=== PATIENT | female | born 1945 | race African-American/Black ===

== ENCOUNTER 2017-08-30 10:27 | Day surgery (SDC) | payer OTHER, BC ==
[2017-08-30 11:13] VITALS: BMI 26.6
[2017-08-30 12:07] LABS: ANION GAP 10 (8-16); BLOOD UREA NITROGEN 13 mg/dL (7-18); CALCIUM 9.2 mg/dL (8.5-10.1); CHLORIDE 102 mmol/L (98-107); CO2 26 mmol/L (21-32); GLUCOSE,RANDOM 91 mg/dL (74-106); MAGNESIUM 2.1 mg/dL (1.8-2.4); POTASSIUM 3.5 mmol/L (3.5-5.1); SODIUM 138 mmol/L (136-145)
--- NOTE | 2017-08-30 12:07 | PN ---
Progress Note (short form) - Note Progress Note: Spoke with Ms. Ang today prior to procedure as she did not return phone shantel from my office or endoscopy unit yesterday. She had prepped for colon on tuesday as opposed to last night. She said that she didn't call back " because she thought she would be told the same thing". I explained that I wanted to confirm if she was showing up tomorrow and discuss the result of her tuesday bowel prep as she may have needed further bowel prep given her history of significant constipation and previously poor bowel prep. Given that she states being on a clear liquid diet for 2 days I also ordered blood for BMP/ Mg.
[2017-08-30 13:26] VITALS: PULSE 57
[2017-08-30 13:46] VITALS: BP 147/74; TEMP 98.6
--- NOTE | 2017-08-31 16:27 | PATH ---
Surgical Pathology Report Patient Name: NICHOLAS GONZALEZ [facility]. Rec. #: [id number] /Age/Gender: 1945 (Age: 72) / F Account: [id number] Location: [facility]ENDOSCOPY Taken: 08/30/2017 Received: 08/30/2017 Reported: 08/31/2017 Physicians: Jose Daily D.O. Specimen(s) Received BX ILEOCECAL VALVE POLYP Clinical History History of colon polyp Postoperative diagnosis: Diverticulosis, polyp Final Diagnosis ILEOCECAL VALVE POLYP, BIOPSY: TUBULAR ADENOMA. Electronically Signed Norberto Edwards M.D. Gross Description Received in formalin, labeled "biopsy ileocecal valve polyp" is a lopez, irregular portion of soft tissue measuring 0.4 cm. in greatest dimension. The specimen is submitted in toto in one cassette. /08/30/201708/30/2017
== END 2017-08-30 12:50 | disposition home or self-care (01) ==
LOC: JASU-ENDO 10:27
PROVIDERS: ATTEND Internal Medicine Gastroenterology
PROC: 0DBC8ZX Excision of Ileocecal Valve, Via Natural or Artificial Opening Endoscopic, Diagnostic (ICD-10-PCS; principal; 2017-08-30 11:30)
DX: Z12.11 Encounter for screening for malignant neoplasm of colon (principal); Z86.010 Personal history of colon polyps; K57.30 Diverticulosis of large intestine without perforation or abscess without bleeding; D12.6 Benign neoplasm of colon, unspecified; K64.8 Other hemorrhoids
CPT/HCPCS: 36415; 80048; 82962; 83735; 88305-TC